=== PATIENT | male | born 1970 | race Caucasian/White ===

== ENCOUNTER → 2016-05-29 | Outpatient (CLI) | payer BC | END | disposition home or self-care (01) | LOC: CFH 15:20 | DX: K22.2 Esophageal obstruction (principal); K30 Functional dyspepsia | CPT/HCPCS: 74220 ==

== ENCOUNTER 2018-04-27 18:33 | Emergency (ER) | payer BC ==
[~2018-04-27] VITALS: Ht 182.9 cm; Wt 82.6 kg
[2018-04-27] MEDS ORDERED: OMNIPAQUE 350 MG/ML, 150 ML BOTTLE ONE (19:16)
[2018-04-27] MEDS ORDERED: PROPOFOL 10 MG/ML, 20ML ONE (20:10)
[2018-04-27 20:13] VITALS: BP 139/79
--- NOTE | 2018-04-27 20:20 | NUR ---
REVIEWED CONSENT WITH PT BEFORE PROCEDURE. DR. DEMPSEY IN TO SPEAK WITH PT ABOUT PROCEDURE. PT SIGNED CONSENT FOR PROCEDURE. CONSENT PLACED ON CHART.
[2018-04-27] MEDS ORDERED: PROPOFOL 10 MG/ML, 20ML IVPush ONE (21:00)
--- NOTE | 2018-04-27 21:05 | NUR ---
PT A&OX4 AFTER PROCEDURE. NO C/O PAIN AT THIS TIME. PT STATED HE FEELS GREAT. PT HIGHLY VERBAL AT THIS TIME. BILAT BEDRAILS UP. VSS. WILL CONTINUE TO MONITOR.
--- NOTE | 2018-04-27 21:35 | NUR ---
PT ABLE TO AMBULATE STEADILY IN HALLS AND ROOM. PT C/O ABD CRAMPS AND SORE THROAT. PT ABLE TO DRINK WATER WITHOUT ANY PROBLEMS. PT STATED HE IS READY TO GO AND FEELS GOOD. TO TAKE PT HOME. ERP AWARE, WORKING ON [employer].
== END 2018-04-27 21:53 | disposition home or self-care (01) ==
LOC: ED 20:54
DX: T18.120A Food in esophagus causing compression of trachea, initial encounter (principal); W45.8XXA Other foreign body or object entering through skin, initial encounter; Y93.89 Activity, other specified; Y92.89 Other specified places as the place of occurrence of the external cause; Y99.8 Other external cause status
CPT/HCPCS: 43247; 74220; 99285; Q9967